=== PATIENT | male | born 1980 | race Two or more races ===

== ENCOUNTER 2016-12-04 19:56 | Emergency (ER) | payer OTHER ==
[~2016-12-04] VITALS: Ht 170.2 cm; Wt 70.3 kg
[2016-12-04 20:10] VITALS: BP 140/114
[2016-12-04] MEDS ORDERED: FOLIC ACID1 MG ORAL (20:13)
[2016-12-04] MEDS ORDERED: MAGNESIUM OXID400 M1 ORAL (20:13)
[2016-12-04] MEDS ORDERED: VITAMIN B-1100 MG ORAL (20:13)
[2016-12-04] MEDS ORDERED: LORazepam 0.5mg tab ORAL ONE (20:15)
[2016-12-04] MEDS ORDERED: ATIVAN1 MG ORAL (21:09)
[2016-12-04] MEDS ORDERED: LORazepam Inj 2mg/ml 1ml IV ONE (21:15)
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
[2016-12-04 22:40] VITALS: BP 138/94
--- NOTE | 2016-12-05 09:17 | Diagnostic Imaging Report ---
Indication: PAIN, trauma, fell hit his head Technique: Continuous helical CT scanning of the head was performed without intravenous contrast material. Axial and coronal 5 mm sections were generated. Radiation dose was minimized using automated exposure control Dose: Total Dose Length Product - DLP [address] Dose Index - CTDIvol(s) 70.38 mGy. Comparison: None Findings: The ventricular system is normal in size and configuration. There is no shift of midline structures. No abnormal extra-axial fluid collections are noted. There is no evidence of intracerebral bleeding. No other abnormal high or low density areas are noted within the brain. There is some scalp soft tissue swelling near the posterior vertex. Intact the visualized orbits are unremarkable. There is right maxillary sinus mucosal thickening Impression: Negative for acute intracranial bleed or mass effect. Minimal sinus disease Minimal scalp soft tissue swelling This agrees with the preliminary interpretation provided overnight by Dr. Goldberg The CT scanner at [facility] is accredited by the [employer] and the scans are performed using protocols designed to limit radiation exposure to as low as reasonably achievable to attain images of sufficient resolution adequate for diagnostic evaluation.
== END 2016-12-04 22:40 | disposition home or self-care (01) ==
LOC: EDBD 19:56 → EMR 20:16
DX: G40.909 Epilepsy, unspecified, not intractable, without status epilepticus (principal); S01.111A Laceration without foreign body of right eyelid and periocular area, initial encounter; W19.XXXA Unspecified fall, initial encounter; Y92.89 Other specified places as the place of occurrence of the external cause; J32.0 Chronic maxillary sinusitis
CPT/HCPCS: 70450; 96374